=== PATIENT | male | born 1980 | race Two or more races ===

== ENCOUNTER 2018-09-18 13:31 | Emergency (ER) | payer SELFPAY ==
[~2018-09-18] VITALS: Ht 182.9 cm; Wt 81.6 kg
--- NOTE | 2018-09-18 13:42 | Emergency Room Report ---
History of Present Illness General Chief Complaint: Behavioral Complaint Source: EMS Present Illness HPI 35-year-old male patient presents the ER brought in by ambulance for behavioral complaint. Per EMS patient was found lying naked in the grass when someone called them. Patient reports history of using meth yesterday, reports history of psych disorder as well. Patient does not report what psychiatric disorders he has, states that he takes medications but does not remember the name. States he has not taken his medications for 1 day. Denies acute complaints. Denies fever, chest pain, shortness of breath, abdominal pain. Patient does not appear aggressive or disruptive, is cooperative denies thoughts of hurting himself or others. patient is not on a hold. Allergies: Coded Allergies: No Known Allergies (Unverified , 09/18/18) Patient History Past Medical History: see triage record Reviewed Nursing Documentation: PMH: Agreed; PSxH: Agreed Nursing Documentation-PMH History Of Psychiatric Problem: Yes Review of Systems All Other Systems: negative except mentioned in HPI Physical Exam Vital Signs Date Time Temp Pulse Resp B/P (MAP) Pulse Ox O2 Delivery O2 Flow Rate FiO2 09/18/18 13:31 99.7 130 20 140/97 99 Room Air Sp02 EP Interpretation: reviewed, normal General Appearance: well appearing, no apparent distress, alert, GCS 15, non- toxic Head: normocephalic, atraumatic Eyes: bilateral eye normal inspection, bilateral eye PERRL ENT: hearing grossly normal, normal pharynx, no angioedema, normal voice, uvula midline, moist mucus membranes Neck: full range of motion, no bony tend Respiratory: lungs clear, normal breath sounds, no rhonchi, no respiratory distress, no accessory muscle use, no wheezing, speaking full sentences Cardiovascular #1: regular rate, rhythm, no edema Gastrointestinal: non tender, soft, no mass, non-distended, no guarding, no rebound Musculoskeletal: back normal, digits/nails normal, gait/station normal, normal range of motion, non-tender Psychiatric: mood/affect normal Skin: no rash Medical Decision Making RANI Attestation Dr. Ferreira is my supervising Physician whom patient management has been discussed with. Homeless Attestation I, The treating provider, Lebron SARAVIA, has assessed and agrees that patient is medically stable for discharge to an outpatient disposition. Diagnostic Impression: Primary Impression: Behavioral disorder ER Course Pt. presents to the ED c/o behavioral disorder, meth use, history of psych problems. Ddx considered but are not limited to anxiety, depression, drug use, alcohol use , behavioral disorder. Vital signs: are WNL, pt. is afebrile Ordered labs, urine drug screen, serum alcohol. ER COURSE: Patient resting comfortably no acute distress, nontoxic-appearing. CBC and CMP unremarkable, no elevation WBCs Acetaminophen and salicylate levels not elevated, serum alcohol less than 3 Urine drug screen positive for meth. Remainder negative. Advised patient against drug use. Advised patient follow-up with drug and alcohol treatment center. Advised patient follow-up with mental health professional. Patient alert and oriented, answering questions without difficulty. Patient resting comfortably no acute distress, nontoxic-appearing. Informed by nursing staff that patient eloped. - Please note that this Emergency Department Report was dictated using [employer] technology software, occasionally this can lead to erroneous entry secondary to interpretation by the dictation equipment. [facility] Test 09/18/18 13:46 09/18/18 14:55 White Blood Count 7.8 K/UL (4.8-10.8) Red Blood Count 4.83 M/UL (4.70-6.10) Hemoglobin 14.7 G/DL (14.2-18.0) Hematocrit 44.3 % (42.0-52.0) Mean Corpuscular Volume 92 FL (80-99) Mean Corpuscular Hemoglobin 30.5 PG (27.0-31.0) Mean Corpuscular Hemoglobin Concent 33.3 G/DL (32.0-36.0) Red Cell Distribution Width 12.8 % (11.6-14.8) Platelet Count 242 K/UL (150-450) Mean Platelet Volume 6.0 FL (6.5-10.1) Neutrophils (%) (Auto) 65.6 % (45.0-75.0) Lymphocytes (%) (Auto) 21.6 % (20.0-45.0) Monocytes (%) (Auto) 10.5 % (1.0-10.0) Eosinophils (%) (Auto) 1.0 % (0.0-3.0) Basophils (%) (Auto) 1.3 % (0.0-2.0) Sodium Level 135 MMOL/L (136-145) Potassium Level 3.4 MMOL/L (3.5-5.1) Chloride Level 99 MMOL/L (98-107) Carbon Dioxide Level 23 MMOL/L (21-32) Anion Gap 13 mmol/L (5-15) Blood Urea Nitrogen 13 mg/dL (7-18) Creatinine 1.3 MG/DL (0.55-1.30) Estimat Glomerular Filtration Rate > 60 mL/min (>60) Glucose Level 79 MG/DL (74-106) Calcium Level 9.1 MG/DL (8.5-10.1) Total Bilirubin 1.3 MG/DL (0.2-1.0) Direct Bilirubin 0.2 MG/DL (0.0-0.3) Aspartate Amino Transf (AST/SGOT) 80 U/L (15-37) Alanine Aminotransferase (ALT/SGPT) 67 U/L (12-78) Alkaline Phosphatase 71 U/L (46-116) Total Protein 8.6 G/DL (6.4-8.2) Albumin 3.9 G/DL (3.4-5.0) Globulin 4.7 g/dL Albumin/Globulin Ratio 0.8 (1.0-2.7) Salicylates Level < 0.2 ug/mL (2.8-20) Acetaminophen Level < 2 MCG/ML (10-30) Serum Alcohol < 3 mg/dL Urine Opiates Screen Negative (NEGATIVE) Urine Barbiturates Screen Negative (NEGATIVE) Phencyclidine (PCP) Screen Negative (NEGATIVE) Urine Amphetamines Screen Positive (NEGATIVE) Urine Benzodiazepines Screen Negative (NEGATIVE) Urine Cocaine Screen Negative (NEGATIVE) Urine Marijuana (THC) Screen Negative (NEGATIVE) Last Vital Signs Date Time Temp Pulse Resp B/P (MAP) Pulse Ox O2 Delivery O2 Flow Rate FiO2 09/18/18 13:31 99.7 130 20 140/97 99 Room Air Disposition: ELOPED Condition: Stable Lebron Salgado Sep 18, 2018 13:42
--- NOTE | 2018-09-18 13:46 | NUR ---
ED Nurse Note: PT BROUGHT IN BY [id number] FROM [facility]. PER EMS, PT WAS FOUND LYING NAKED ON THE GRASS AND WAS NOT RESPONDING TO [employer]. EMS WAS ABLE TO GET PT'S NAME. PT ALSO ADMITTED TO METH USE X YESTERDAY TO EMS. PT NOT RESPONDING TO ANY QUESTIONS AT BEDSIDE. RANI JOLLEY AT BEDSIDE FOR EVALUATION.
[2018-09-18 13:48] VITALS: BP 154/94
[2018-09-18 13:57] LABS: BASOPHILS % (AUTO) 1.3 % (0.0-2.0); HEMATOCRIT 44.3 % (42.0-52.0); HEMOGLOBIN 14.7 G/DL (14.2-18.0); LYMPHOCYTES % (AUTO) 21.6 % (20.0-45.0); MEAN CORPUSCULAR VOLUME 92 FL (80-99); MONOCYTES % (AUTO) 10.5 % (1.0-10.0); NEUTROPHILS % (AUTO) 65.6 % (45.0-75.0); PLATELET COUNT 242 K/UL (150-450); RED BLOOD COUNT 4.83 M/UL (4.70-6.10); RED CELL DISTRIBUTION WIDTH 12.8 % (11.6-14.8); WHITE BLOOD COUNT 7.8 K/UL (4.8-10.8)
--- NOTE | 2018-09-18 13:59 | NUR ---
ED Nurse Note: PT AWAKE, CALM AND COOPERATIVE. AOX3 - PT NOT ORIENTED TO SITUATION BUT IS ORIENTED TO SELF, PLACE, AND TIME.
[2018-09-18 14:15] LABS: ANION GAP 13 mmol/L (5-15); BLOOD UREA NITROGEN 13 mg/dL (7-18); CALCIUM 9.1 MG/DL (8.5-10.1); CARBON DIOXIDE 23 MMOL/L (21-32); CHLORIDE 99 MMOL/L (98-107); CREATININE 1.3 MG/DL (0.55-1.30); POTASSIUM 3.4 MMOL/L (3.5-5.1); SODIUM 135 MMOL/L (136-145)
[2018-09-18 14:25] LABS: ALANINE AMINOTRANSFERASE 67 U/L (12-78); ALBUMIN 3.9 G/DL (3.4-5.0); ALBUMIN/GLOBULIN RATIO 0.8 (1.0-2.7); ALKALINE PHOSPHATASE 71 U/L (46-116); ASPARTATE AMINO TRANSFERASE 80 U/L (15-37); BILIRUBIN,TOTAL 1.3 MG/DL (0.2-1.0)
[2018-09-18 14:28] LABS: BILIRUBIN,DIRECT 0.2 MG/DL (0.0-0.3)
--- NOTE | 2018-09-18 14:40 | NUR ---
ED Nurse Note: PT REMINDED THAT URINE SAMPLE IS NEEDED. URINAL LEFT AT BEDSIDE.
--- NOTE | 2018-09-18 14:45 | NUR ---
ED Nurse Note: URINE COLLECTED AND SENT TO LAB.
--- NOTE | 2018-09-18 15:00 | NUR ---
ED Nurse Note: PT ADMITS HE IS HOMELESS. FOOD, JUICE, AND WATER PROVIDED FOR PT. PT CAME IN WITHOUT CLOTHES. CLOTHING PROVIDED FOR PT.
--- NOTE | 2018-09-18 15:14 | NUR ---
ED Nurse Note: RESOURCES REGARDING SHELTERS AND FREE HEALTH CLINICS EXPLAINED AND PROVIDED TO PT. PT STATES HE DOES NOT REQUIRE OR DESIRE ASSISTANCE WITH PLACEMENT FROM RN AT THIS TIME BUT STATES HE WILL LOOK INTO IT ON HIS OWN. TAP CARD PROVIDED FOR PT WHO STATES HE IS AWARE ON HOW TO USE IT AND WHERE HE WILL GO AFTER DISCHARGE. PT DOES NOT WISH TO DISCLOSE LOCATION TO RN.
--- NOTE | 2018-09-18 16:15 | NUR ---
ED Nurse Note: PT ELOPED WITHOUT DC INSTRUCTIONS. PT APPROPRIATELY CLOTHED AND GIVEN FOOD, WATER, AND JUICE DURING STAY IN ER. PT LEFT AFTER BEING EDUCATED ON RESOURCES REGARDING SHELTERS, ALCOHOL AND DRUG REHAB, AND FREE HEALTH CLINICS. PT ALSO TOOK TAP CARD WITH HIM. CHARGE NURSE AND PA AWARE.
== END 2018-09-18 16:15 | disposition left against medical advice (07) ==
LOC: EDBD 13:31 → EMR 14:00
DX: F60.9 Personality disorder, unspecified (principal)
CPT/HCPCS: 36415; 80053; 80307; 82248; 85025; 96360; 99284; G0480; 80329